=== PATIENT | female | born 2000 | race Caucasian/White ===

== ENCOUNTER 2021-02-20 14:37 | Emergency (ER) | payer OTHER, SELFPAY ==
--- NOTE | ~2021-02-20 | XR_ITS ---
EXAMINATION: XR knee LT min 4V DATE: 02/20/2021 15:23 INDICATION: Left knee injury and pain and swelling. TECHNIQUE: 5 views of left knee were obtained. COMPARISON: None. FINDINGS: Bone alignment is normal. No fracture. There is mild osteoarthritis of patellofemoral dominique rtment characterized by a tiny marginal osteophyte. No knee joint effusion. IMPRESSION: 1. Mild osteoarthritis of patellofemoral compartment. Reviewed, dictated and finalized at location B.
--- NOTE | 2021-02-20 14:51 | ED.LOWEXIN ---
HPI - Extremity Injury (Lower) General Chief Complaint: Extremity Injury, Lower Stated Complaint: left knee injury Time Seen by Provider: 02/20/21 14:51 Source: patient and RN notes reviewed History of Present Illness HPI Narrative: Patient is a 20-year-old female who presents the urgent care with complaints of left knee pain. Patient states that she slipped and fell onto her left knee on the concrete curb approximately 45 minutes prior to arrival. Patient denies any use of ice or [id number] medication for her pain. Patient states that her left knee has locked on her . Patient denies hitting her head or any other injuries from the fall. No other acute complaints. No acute distress noted. Patient aware of the plan of care. Some parts of this dictation were generated by voice recognition software and may contain typographical and/or grammatical inaccuracies. Related Data Home Medications Medication Instructions Recorded Confirmed citalopram 10 mg PO DAILY 02/20/21 02/20/21 Allergies Allergy/AdvReac Type Severity Reaction Status Date / Time No Known Allergies Allergy Verified 02/20/21 14:55 Review of Systems Review of Systems: Narrative: CONSTITUTIONAL: Denies fever, chills, or sweats. EYES: Denies visual changes, redness, or discharge. ENT: Denies rhinorrhea, congestion, sore throat, or otalgia. CARDIOVASCULAR: Denies chest pain, palpitations, or edema. RESPIRATORY: Denies cough or dyspnea. GASTROINTESTINAL: Denies abdominal pain, nausea, vomiting, or diarrhea. GENITOURINARY: Denies dysuria or hematuria. SKIN: Denies rash or itching. MUSCULOSKELETAL: Reports of left knee pain due to fall NEUROLOGIC: Denies headache, numbness, or weakness. All other systems reviewed are negative, except as documented in HPI. [facility] Social History Social History Gender identity (if verbalized by the patient): Female Comments At the time of my signature, I reviewed and agree with the nursing past medical, surgical, social, and family history. There is no relevant family history pertinent to the patient complaint. Exam Narrative: Exam Narrative: GENERAL: This is a well-nourished, well-developed patient, in no apparent distress. HEAD: normocephalic, atraumatic. EYES: PERRL. Sclera clear/white. Vision is grossly intact. EARS: External ears normal NOSE: External nose normal with no obvious nasal discharge, nares without redness, no rhinorrhea. THROAT: Mucous membranes moist NECK: Neck supple CARDIOVASCULAR: Regular rate and rhythm without murmurs, gallops, or rubs. RESPIRATORY: Clear to auscultation. Breath sounds equal bilaterally. No wheezes, rales, or rhonchi. SKIN: warm, intact with no suspicious lesions or rash, good texture and turgor. NEURO: awake, alert, and oriented to person, place and time. There were no obvious focal neurologic abnormalities. EXTREMITIES: Mild edema noted to the left knee with moderate anterior tenderness. Negative drawer test. Range of motion difficult due to increased pain. No weightbearing assessed. Positive strong left pedal pulse with capillary refill less than 2 seconds Course Vital Signs Vital signs: Vital Signs Temperature 98.3 F 02/20/21 14:58 Pulse Rate 111 H 02/20/21 14:58 Respiratory Rate 16 02/20/21 14:58 Blood Pressure 126/86 02/20/21 14:58 Pulse Oximetry 99 02/20/21 14:58 Temperature 98.3 F 02/20/21 14:58 Pulse Rate 111 H 02/20/21 14:58 Respiratory Rate 16 02/20/21 14:58 Blood Pressure 126/86 02/20/21 14:58 Pulse Oximetry 99 02/20/21 14:58 Reviewed MDM - Extremity Injury (Lower) MDM Narrative Medical decision making narrative: Reviewed x-ray results with the patient. She is aware that there is no notable fracture to the knee. However she does have some osteoarthritis in the joint which will increase pain after impaction. Advised the patient to keep the leg elevated and use ice. Make sure you are practicing passive range of motio
[2021-02-20 14:58] VITALS: BP 126/86; PULSE 111; RESP 16; TEMP 36.8; O2SAT 99
== END 2021-02-20 15:35 | disposition home or self-care (01) ==
PROVIDERS: Emergency Provider Nurse Practitioner Family
DX: M25.562 Pain in left knee (principal); M17.12 Unilateral primary osteoarthritis, left knee; F32.9 Major depressive disorder, single episode, unspecified
CPT/HCPCS: 73564; 99213; G0463

== ENCOUNTER 2021-06-03 15:57 | Emergency (ER) | payer OTHER, SELFPAY ==
--- NOTE | ~2021-06-03 | XR_ITS ---
EXAMINATION: XR ankle RT min 3V DATE: 06/03/2021 16:25 INDICATION: Right ankle injury and pain. TECHNIQUE: 4 views of right ankle were obtained. COMPARISON: None. FINDINGS: Bone alignment is normal. No fracture. Joint spaces are well maintained. There is lateral a nkle soft tissue swelling. IMPRESSION: 1. No fracture. Reviewed, dictated and finalized at location A. IMPRESSION: 1. No fracture.
[2021-06-03 16:10] VITALS: BP 130/82; PULSE 86; RESP 18; TEMP 37.1; O2SAT 99
--- NOTE | 2021-06-03 16:17 | ED.LOWEXIN ---
HPI - Extremity Injury (Lower) General Chief Complaint: Extremity Injury, Lower Stated Complaint: Possible injury to right Ankle Time Seen by Provider: 06/03/21 16:15 Source: patient Mode of arrival: ambulatory Limitations: no limitations History of Present Illness HPI Narrative: Mamadou Tillman is a 20 yo female who rolled her right ankle at work and hurts on her lateral ankle down into her foot. She is here for evaluation of this injury that occurred at work. Foot is swollen on the lateral part of ankle. Painful to try and walk Related Data Home Medications Medication Instructions Recorded Confirmed citalopram 10 mg PO DAILY 02/20/21 06/03/21 Allergies Allergy/AdvReac Type Severity Reaction Status Date / Time No Known Allergies Allergy Verified 06/03/21 16:20 Review of Systems Review of Systems: CONSTITUTIONAL: Denies fever, chills, sweats. EYES: Denies visual changes, redness, discharge. ENT: Denies rhinorrhea, congestion, sore throat, otalgia. CARDIOVASCULAR: Denies chest pain, palpitations, edema. RESPIRATORY: Denies dyspnea, wheezing, cough GASTROINTESTINAL: Denies abdominal pain, nausea, vomiting, diarrhea. GENITOURINARY: Denies dysuria, hematuria, abnormal discharge SKIN: Denies rash or itching. NEUROLOGIC: Denies numbness, or focal weakness. PSYCHIATRIC: Denies anxiety or depression. Right ankle pain after rolling ankle at work today PMFSH Past Medical History Medical History Depression Social History Social History Smoking status: Never smoker Alcohol intake: never Gender identity (if verbalized by the patient): Female Comments At time of signature, I agree with nursing past medical, surgical, social and family history. There is no relevant family history pertinent to the presenting complaint. Exam Narrative: GENERAL: This is a well-nourished, well-developed patient, in mild distress. HEAD: normocephalic, atraumatic. EYES: Sclera clear/white. Vision is grossly intact. EARS: External ears normal, Hearing grossly intact. NOSE: External nose normal without nasal discharge, nares without redness, no rhinorrhea. THROAT: Mucous membranes moist, NECK: Neck supple, CARDIOVASCULAR: Regular rate and rhythm without murmurs, gallops, or rubs. RESPIRATORY: Clear to auscultation. Breath sounds equal bilaterally. No wheezes, rales, or rhonchi. GASTROINTESTINAL: Abdomen soft, non-tender, SKIN: warm, intact with no suspicious lesions or rash, good texture and turgor. NEURO: awake, alert, and oriented to person, place and time. There were no obvious focal neurologic abnormalities. Steady gait EXTREMITIES: R foot pain is 11/10; lateral swelling at joint, painful to move laterally, 2+ pedal pulse. BACK: Nontender without deformity Course Course Emergency Course: Patient here after fall at work where she rolled her right ankle outwardly and heard a pop X-ray done results showed no fracture, bone alignment is normal, joint spaces are well-maintained, there is lateral ankle soft tissue swelling Prescription placed, started on Naprosyn and baclofen, do rice and keep leg elevated. May go to work if able to walk on for tomorrow Vital Signs Vital signs: Vital Signs Temperature 98.8 F 06/03/21 16:10 Pulse Rate 86 06/03/21 16:10 Respiratory Rate 18 06/03/21 16:10 Blood Pressure 130/82 06/03/21 16:10 Pulse Oximetry 99 06/03/21 16:10 Temperature 98.8 F 06/03/21 16:10 Pulse Rate 86 06/03/21 16:10 Respiratory Rate 18 06/03/21 16:10 Blood Pressure 130/82 06/03/21 16:10 Pulse Oximetry 99 06/03/21 16:10 MDM - Extremity Injury (Lower) Differential Diagnosis Differential diagnosis: Likely ankle sprain and strain, fracture of toe, ankle fracture and other Discharge Plan Discharge Clinical Impression: Ankle sprain and strain Patient Disposition: [facility]
== END 2021-06-03 16:50 | disposition home or self-care (01) ==
PROVIDERS: Emergency Provider Nurse Practitioner
DX: S93.401A Sprain of unspecified ligament of right ankle, initial encounter (principal); X50.1XXA Overexertion from prolonged static or awkward postures, initial encounter
CPT/HCPCS: 73610; 99213; G0463

== ENCOUNTER 2022-10-16 17:45 | Emergency (ER) | payer OTHER, SELFPAY ==
[2022-10-16 18:01] VITALS: BP 147/77; PULSE 106; RESP 16; TEMP 37.4; O2SAT 99
--- NOTE | 2022-10-16 18:12 | ED.LOWEXIN ---
HPI - Extremity Injury (Lower) General Chief Complaint: Extremity Injury, Lower Stated Complaint: Right foot pain Time Seen by Provider: 10/16/22 18:13 Source: patient Mode of arrival: ambulatory Limitations: no limitations History of Present Illness HPI Narrative: 22-year-old female presented from complaint of right lateral foot pain for 1 week. She denies known injury or trauma. She states she walks frequently. she denies numbness, tingling, weakness or decreased range of motion. The foot is tender with light touch. No other complaints. She took Tylenol once on 10/13. Related Data Home Medications Medication Instructions Recorded Confirmed sertraline 100 mg tablet mg 10/16/22 10/16/22 Allergies Allergy/AdvReac Type Severity Reaction Status Date / Time No Known Allergies Allergy Verified 06/03/21 16:20 Review of Systems Review of Systems: CONSTITUTIONAL: Denies body aches, fever, chills EYES: Denies visual changes CARDIOVASCULAR: Denies chest pain, palpitations, or edema. RESPIRATORY: Denies cough or dyspnea. GASTROINTESTINAL: Denies abdominal pain, nausea, vomiting, or diarrhea. SKIN: Denies rash, itching, or wounds. MUSCULOSKELETAL: Denies back pain, joint pain, or myalgia. NEUROLOGIC: Denies headache, numbness, tingling, or weakness. All systems reviewed & are unremarkable except as noted in HPI and below PMFSH Past Medical History Medical History Depression Social History Social History Smoking status: Never smoker Alcohol intake: never Gender identity (if verbalized by the patient): Female Comments At time of signature, I have reviewed and agree with nursing past medical, surgical, social and family history unless otherwise noted. Please see nursing chart for further information. There is no relevant family history pertinent to the presenting complaint Exam Narrative: GENERAL: Well-appearing CHEST: Speaks in full sentences. No respiratory distress. HEART: Regular rate and rhythm. Normal and equal peripheral pulses. EXTREMITIES: Right foot lateral aspect is subjectively tender to light touch. Foot has normal strength and sensation, normal range of motion. No edema or ecchymosis, No point tenderness. No open wounds or obvious deformity; pulse palpable and equal bilaterally, skin warm, dry, pink. Capillary refill less than 3 seconds. SKIN: Warm, dry, no rash. Patient has marker writing on the left forearm and right thigh. NEURO: Alert and oriented x3. PSYCH: Normal mood Course Course Emergency Course: Patient is aware of diagnosis, understands and agrees to treatment plan. Anticipatory guidance given. Patient agrees to follow-up as directed and is aware of reasons to seek care at the emergency department. Portions of this record may have been created with voice recognition software Level of Care: Express Care Visit Vital Signs Vital signs: Vital Signs Temperature 99.4 F 10/16/22 18:01 Pulse Rate 106 H 10/16/22 18:01 Respiratory Rate 16 10/16/22 18:01 Blood Pressure 147/77 H 10/16/22 18:01 Pulse Oximetry 99 10/16/22 18:01 Oxygen Delivery Room Air 10/16/22 18:01 Temperature 99.4 F 10/16/22 18:01 Pulse Rate 106 H 10/16/22 18:01 Respiratory Rate 16 10/16/22 18:01 Blood Pressure 147/77 H 10/16/22 18:01 Pulse Oximetry 99 10/16/22 18:01 Oxygen Delivery Room Air 10/16/22 18:01 Reviewed Procedures Orthopedic Splinting/Casting right foot: Lower Extremity Immobilizer: [place] wrap MDM - Extremity Injury (Lower) MDM Narrative Medical decision making narrative: [place] wrap applied to right foot. Advised supportive measures and signs/symptoms to go to the ER. Pt is appropriate for outpt treatment and f/u. Of note, the writing on the left forearm read failure, not good enough, ignorant. She states it is better than u
== END 2022-10-16 18:32 | disposition home or self-care (01) ==
PROVIDERS: Emergency Provider Nurse Practitioner Family
DX: F32.A Depression, unspecified (principal)
CPT/HCPCS: 99213; G0463